=== PATIENT | female | born 1945 | race Caucasian/White ===

== ENCOUNTER 2021-12-07 10:03 | Outpatient (CLI) | payer MEDICARE, BC, SELFPAY ==
[2021-12-07 13:16] LABS: Albumin* 4.1 g/dL (3.3-5.0); Chloride* 103 mmol/L (96-114)
[2021-12-07 13:17] LABS: Potassium* 4.5 mmol/L (3.6-5.1); Sodium* 138 mmol/L (135-149)
[2021-12-07 13:19] LABS: Aspartate Amino Transferase* 28 U/L (12-35); Bilirubin Total* 0.5 mg/dL (0.1-1.5); Blood Urea Nitrogen* 13 mg/dL (7-30); Carbon Dioxide* 32 mmol/L (20-32); Cholesterol* 220 mg/dL (90-199); Creatinine* 0.7 mg/dL (0.5-1.5); Glucose* 94 mg/dL (60-115); Total Protein* 6.3 g/dL (6.0-8.3)
[2021-12-07 13:20] LABS: Alanine Aminotransferase* 20 U/L (4-35); Alkaline Phosphatase* 59 U/L (40-150); Calcium* 9.4 mg/dL (8.4-10.6); HDL Cholesterol* 85 mg/dL (>=50); LDL Cholesterol Calculated 117 mg/dL (<100); Triglycerides* 91 mg/dL (40-149)
[2021-12-07 13:59] LABS: TSH With Reflex to FT4* < 0.015 uIU/mL (0.270-4.200)
[2021-12-07 14:32] LABS: Free T4 Free Thyroxine* 2.06 ng/dL (0.70-1.85)
== END 2021-12-07 10:04 | disposition home or self-care (01) ==
PROVIDERS: PCP Internal Medicine; Visit Provider Internal Medicine
DX: Z00.00 Encounter for general adult medical examination without abnormal findings (principal); E03.9 Hypothyroidism, unspecified; G25.0 Essential tremor; M81.0 Age-related osteoporosis without current pathological fracture
CPT/HCPCS: 80053; 80061; 84439; 84443

== ENCOUNTER 2021-12-29 17:51 | Emergency (ER) | payer MEDICARE, BC, SELFPAY ==
[2021-12-29 17:56] VITALS: BP 152/74; PULSE 76; RESP 18; TEMP 37.3; O2SAT 98; BMI 27.4
--- NOTE | 2021-12-29 18:25 | CRLHL7_ITS ---
For Patients: As a result of the Century Cures Act, medical imaging exams and procedure reports are released immediately into your electronic medical record. You may view this report before your referring provider. If you have questions, please contact your health care provider. Indication: Injury and pain. Technique: Right wrist, 3 views Comparison: None. Findings: Bones: Alignment is normal. No fractures or bone lesions. Joint spaces: Unremarkable. Soft tissues: Unremarkable. Impression: No acute injury in the right wrist. Dictated by Donaldo Bailey MD @ 12/29/2021 7:01:28 PM (Electronically Signed)
--- NOTE | 2021-12-29 18:32 | CRLHL7_ITS ---
For Patients: As a result of the Century Cures Act, medical imaging exams and procedure reports are released immediately into your electronic medical record. You may view this report before your referring provider. If you have questions, please contact your health care provider. INDICATION: Fall. TECHNIQUE: Pelvis and right hip, 3 views. COMPARISON: None. FINDINGS: Bones: Alignment is normal. No fractures or bone lesions. Joint spaces: Mild degenerative changes of both hips. Soft tissues: Unremarkable. IMPRESSION: No acute fracture or dislocation. Dictated by Donaldo Bailey MD @ 12/29/2021 7:00:07 PM (Electronically Signed)
[2021-12-29] MEDS: ACETAMINOPHEN 325 MG TABLET 650 MG PO (18:44)
--- NOTE | 2021-12-29 19:37 | ED_ITS ---
HPI - General Adult General Chief complaint: Extremity Pain/Injury, Upper Stated complaint: Fall w/right wrist and right leg pain Time Seen by Provider: 12/29/21 18:16 History of Present Illness HPI narrative: Radha is a 76-year-old female patient presents emergency department with hi story of essential tremor, thyroiditis, and falls. She presents after having an accidental fall at approximately 3:30 p.m. where she misstepped over a concrete barrier and fell onto outstretched right hand, right hip, and right shoulder. The patient denies numbness, tingling, weakness. Patient reports decreased range of motion in her right wrist and right hip. The patient states that she just did not hit her head, had no loss of consciousness, and she denies other injury. She was able to right herself and ambulate on scene. She denies other acute concerns or complaints apart from as mentioned. Related Data Home Medications Medication Instructions Recorded Confirmed calcium carbonate 600 mg-vitamin cap PO DAILY cap 12/07/21 12/07/21 D3 12.5 mcg (500 unit) capsule (Calcium 600 with Vitamin D3) Previous Rx's Medication Instructions Recorded levothyroxine 125 mcg capsule 125 mcg PO QDAY #90 cap 12/07/21 metronidazole 1 % topical gel 1 applic TOPICAL QDAY #60 g 12/07/21 (Metrogel) Allergies Allergy/AdvReac Type Severity Reaction Status Date / Time Duck eggs Allergy Mild Rash Uncoded 12/29/21 18:03 Ivory soap Allergy Mild Rash Uncoded 12/29/21 18:03 smoke Allergy Mild congestion Uncoded 12/29/21 18:03 Review of Systems Const: Denies: fever, fatigue or malaise Eyes: Denies: change in vision ENMT: Denies: neck pain Cardio: Denies: chest pain or shortness of breath with exertion Resp: Denies: shortness of breath GI: Denies: abdominal pain Musculo: Reports: joint pain, limited range of motion and joint swelling; Denies: neck pain Integ/Breast: Reports: other (bruising noted along right wrist); Denies: redness Neuro: Denies: headache, numbness in extremities or weakness in extremities Endo: Denies: fatigue PFSH PFSH Social History Smoking Status: Never smoker Do you use any of these nicotine containing products: None Second hand tobacco smoke exposure: No How often do you have a drink containing alcohol: monthly or less How often do you have six or more drinks on one occasion: Never AUDIT-C Alcohol total score: 1 Non-prescribed substance use: denies use Little interest or pleasure in doing things: not at all Feeling down, depressed, or hopeless: not at all Exam Const: Vital Signs, click to edit/add: Vital Signs - 24 hr 12/29/21 17:56 12/29/21 19:55 Temperature 99.1 F Pulse Rate [Pulse Oximeter] 76 98 Respiratory Rate 18 Blood Pressure [Le ft Upper Arm] 152/74 H Pulse Oximetry 98 96 Documenting provider has reviewed patient's vital signs: yes Common normals: no apparent distress, oriented x3, no limitations, healthy appearing, alert and well nourished General appearance: cooperative, comfortable, well kempt and well developed; not in distress Orientation/consciousness: Yes awake, Yes oriented to person, Yes oriented to place and Yes oriented to time HENMT: Common normals: normocephalic and head/scalp atraumatic Head and scalp: normocephalic and atraumatic Eye: Common normals: PERRL Pupil: PERRL Neck & C-Spine: Common normals: full ROM, no lymphadenopathy and supple Resp: Common normals: normal respiratory effort, no use of accessory muscles and clear to auscultation bilaterally Effort & inspection: able to speak in complete sentences Auscultation: clear to auscultation bilaterally Cardio: Common normals: regular rate, regular rhythm, S1 normal heart sound, S2 normal heart sound, no gallops and no murmurs Rate: regular rate Rhythm: regular rhythm Heart sounds: S1 normal and S2 normal GI: Common normals: Normal to inspection, nondistended, normoactive bowel sounds present and soft to palpation Palpation: soft Back & Pelvis: Pelvis: no pain with anterior-posterior compression and no pain with lateral compression Extremity: General: normal exam except as noted Right upper extremity: wrist Right wrist: inspection (mild swelling noted with some ecchymosis noted), palpation (tender with moderate palpation over carpal bones), ROM (limited 2/2 pain) and neurovascular exam (sensation intact, motor limited 2/2 pain) Neuro: Raquel Coma Scale: document GCS findings Raquel coma scale eye opening: Spontaneous (4) [place] coma scale verbal response: Orientated (5) [place] coma scale motor response: Obey commands (6) [place] coma scale total score: 15 Common normals: oriented x3 Sensorium/orientation: awake, alert, oriented to person, oriented to place and oriented to time Psych: Appearance: well kempt Course Vital Signs Vital signs: Initial Vital Signs Temperature 99.1 F 12/29/21 17:56 Temperature Source Temporal Artery Scan 12/29/21 17:56 Pulse Rate 76 12/29/21 17:56 Respiratory Rate 18 12/29/21 17:56 Blood Pressure 152/74 H 12/29/21 17:56 Blood Pressure Mean 100 12/29/21 17:56 Blood Pressure Position Sitting 12/29/21 17:56 Pulse Oximetry 98 12/29/21 17:56 Oxygen Delivery Method 12/29/21 17:56 Vital Signs Temperature 99.1 F 12/29/21 17:56 Pulse Rate 76 12/29/21 17:56 Respiratory Rate 18 12/29/21 17:56 Blood Pressure 152/74 H 12/29/21 17:56 Pulse Oximetry 98 12/29/21 17:56 Temperature 99.1 F 12/29/21 17:56 Pulse Rate 98 12/29/21 19:55 Respiratory Rate 18 12/29/21 17:56 Blood Pressure 152/74 H 12/29/21 17:56 Pulse Oximetry 96 12/29/21 19:55 Discharge Plan Discharge Clinical Impression: Acute hip pain, Right wrist pain, Fall Patient Disposition: Home, Self-Care Condition: Stable Instructions: R.I.C.E. Treatment (ED) Additional Instructions: Thank you for choosing [facility] for your care today. Take NSAID of choice - Advil, Aleve, Motrin, or substitute - scheduled per package directions with food for 72hrs. Use RICE - rest, ice, compression, and elevation - as needed for symptom control. I recommend following up with your primary physician in 1-2wks if a significant improvement of symptoms is not noted. Continue routine activity as tolerated. If new or worsening symptoms develop or you have any concerns in the meantime, please call your primary care clinic or return to the ER for re-evaluation. Activity Level: Activity as Tolerated Discharge Diet: Regular Prescriptions: No Action calcium carbonate-vitamin D3 [Calcium 600 with Vitamin D3] 600 mg-12.5 mcg (500 unit) capsule PO DAILY 0RF metronidazole [Metrogel] 1 % gel 1 applic topical QDAY Qty: 60 0RF levothyroxine 125 mcg capsule 125 mcg PO QDAY Qty: 90 3RF Follow Up/Referrals: Shayan Scherer MD [Primary Care Provider] - Stand Alone Forms: ReachLocal Info Instructions
[2021-12-29 19:55] VITALS: PULSE 98; O2SAT 96
--- NOTE | 2021-12-29 19:55 | ED.NURSE ---
TANISHA wrap applied to pt right arm and wrist.
== END 2021-12-29 20:00 | disposition home or self-care (01) ==
PROVIDERS: Emergency Provider Family Medicine; PCP Internal Medicine
DX: M25.551 Pain in right hip (principal); M25.531 Pain in right wrist; W01.0XXA Fall on same level from slipping, tripping and stumbling without subsequent striking against object, initial encounter
CPT/HCPCS: 73110; 73502; 99283; A9270

== ENCOUNTER 2022-02-10 13:03 | Outpatient (CLI) | payer MEDICARE, BC, SELFPAY ==
--- OUTSIDE RECORDS SUMMARY | 2022-02-10 13:06 | XMS_ITS | Encounter Summary ---
:1945 Author Organization [facility] Address [address] [place] [address] Care Team Providers Name Role Phone Shayan Scherer MD Primary Care Provider [phone] Reason for Visit Reason Comments Tremors UMP NE MOVEMENT DISORDER- CO NSULT FO ESSENTIAL TREMORS Encounter Details Date Type Department Care Team Description 04/11/2018 Office Visit [facility] Neurology Mathew Keane Tremor (Primary Dx); [address] [place] [address] MD Adiel Heterochromia of iris of both eyes; [address] [place] [address] [place] [id number] [phone] Social History Tobacco Use Types Packs/Day Years Used Date Never Smoker Smokeless Tobacco: Never Used Alcohol Use Standard Drinks/Week Comments Yes 0 (1 standard drink = 0.6 oz pure alcoho l) social. rare and limited Alcohol Habits Answer Date Recorded How often do you have a drink containing Not asked alcohol? How many drinks containing alcohol do you Not asked have on a typical day when you are drinking? How often do you have six or more drinks on Not asked one occasion? Comment: social. rare and limited 04/11/2018 Sex Assigned at Date Recorded Not on file documented as of this encounter Last Filed Vital Signs Vital Sign Reading Time Taken Comments Blood Pressure 137/66 04/11/2018 11:01 AM CRIMINAL JUSTICE PROFESSOR Pulse 88 04/11/2018 11:01 AM CRIMINAL JUSTICE PROFESSOR Temperature 36.3 ??C (97.4 ??F) 04/11/2018 11:01 AM CRIMINAL JUSTICE PROFESSOR Respiratory Rate 16 04/11/2018 11:01 AM CRIMINAL JUSTICE PROFESSOR Oxygen Saturation 99% 04/11/2018 11:01 AM CRIMINAL JUSTICE PROFESSOR Inhaled Oxygen Concentration - - Weight 69.9 kg (154 lb) 04/11/2018 11:01 AM CRIMINAL JUSTICE PROFESSOR Height 158 cm (5' 2.2) 04/11/2018 11:01 AM CRIMINAL JUSTICE PROFESSOR Body Mass Index 27.99 04/11/2018 11:01 AM CRIMINAL JUSTICE PROFESSOR documented in this encounter Patient Instructions Patient InstructionsTMathew phillips MD - 04/11/2018 11:10 AM CST ESSENTIAL TREMOR Essential Tremor - no features of parkinson This is not a dystonic tremor at this point. Would not recommend medications at this time. She is not keen on taking medications at this time. Discussed propranolol, primidone (mysoline), topiramate (Topamax) as possible medications but not needed and they have side effects Discussed research by Dr. Armaan Castellano at [facility], etc. Most likely the head tremor - no no tremor will increase over time HETEROCHROMIA IRISES PROSOPAGNOSIA ? THYROID DISORDER - ON MEDICATIONS. NO TESTS OR MEDICATIONS AT THIS TIME. INAL JUSTICE PROFESSOR documented in this encounter Progress Notes Mathew Keane MD - 04/11/2018 11:10 AM CST Summary and Recommendations: ESSENTIAL TREMOR Essential Tremor - no features of parkinson This is not a dystonic tremor at this point. Would not recommend medications at this time. She is not keen on taking medications at this time. Discussed propranolol, primidone (mysoline), topiramate (Topamax) as possible medications but not needed and they have side effects Discussed research by Dr. Armaan Castellano at [facility], etc. Most likely the head tremor - no no tremor will increase over time HETEROCHROMIA IRISES PROSOPAGNOSIA ? THYROID DISORDER - ON MEDICATIONS. NO TESTS OR MEDICATIONS AT THIS TIME. Mathew Keane MD PATIENT: Radha Byrne 72 year old female : 1945 LORENA: April 11, 2018 Consult requested by pcp/other Outside records reviewed and revealed - inserted History obtained from patient History of Present Illness 72 yo woman with tremor Ros She has early cataract Heterochromia - iris are different. Has ocular dominance with one seeing close and one seeing far Hearing is okay Sleep - had sleep study - she snores She does not have obstruction if she sleeps on her side. This is fine. She has never and no kids She wakes up 1-2 times per night and urinates Sleeps 5-7 hours of sleep - sometimes sleeps 8 hours No loss of smell/taste No gi problems No bladder issues Had trimming of her left Knee Had wiggling of her face. 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 She is living by herself and Nadja lives 20 miles away in [place]. Thyroid surgeries x 3 - was in her 20s and was working [employer]mates Was super tired after coming home from work and fatigue prompted her to see doctor and testing was done and thyroid problem discovered. She had something and was operated on this. - there was not a goiter 20 yrs later she had bulging of thyroid - ? Fluid inside and was biopsied and had an operation possibly at that time and medications may have been changed 3rd operation was the big surgery and remainder of her thyroid was removed Cholesterol has been way above average Eats plant based diet and uses olive oil Using [facility] for medical records. She denies diabetes. She is here today because her head is rotating back and forth and can feel it sometimes. She can see it in a mirror. She is unaware of it at times She is bothered by this. It does not affect her vision. of last month she noticed the symptoms and reviewed this with Dominique Marion of [facility]. She had blood work. No abnormal growth of her thyroid. She had a mri of her thyroid and not her brain. Her thyroid was okay She was referred to me. She has no family history of tremor She has had some internal tremor. She has felt shaky and has problems walking and had to grab on things. She felt that she is going towalk crooked Duration - of symptoms Morning and after lunch went to bed and this probably resolved. she has noticed a bit of shaking in her hands and is somewhat wiggling She is right handed. She uses her left a lot as well. Not sure if there is a difference between the two hands She had a mon (alcohol) a week ago and not clear it helped. Coffee does not seem to increase it. She drinks a cup or two at breakfast and cup at lunch. Rarely has a fourth cup. She may have just one cup in the morning. She is busy - Board in a variety of roles. 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 She does not drink soda and if she does it is rootbeer and does not drink coca cola. She does not drink lemonade. Has some problems with nouns - memory/cognitive changes with aging She always had problems with facial recognition since she was a child. Medications Calcium vitamin D Cholecalciferol vitamin D3 Levothyroxine synthroid/levothyroid 137 mcg 14 Review of systems are negative except for Patient Active Problem List Diagnosis ??? Fall ??? Hypothyroidism ??? Osteoporosis ??? History of surgical removal of ganglion cyst Allergies not on file No past surgical history on file. No past medical history on file. Social History Social History ??? Marital status: Single Spouse name: N/A ??? Number of children: N/A ??? Years of education: N/A Occupational History ??? Not on file. Social History Main Topics ??? Smoking status: Not on file ??? Smokeless tobacco: Not on file ??? Alcohol use Not on file ??? Drug use: Not on file ??? Sexual activity: Not on file Other Topics Concern ??? Not on file Social History Narrative single. lives in [place]. Nadja Nino sister No family history on file. Current Outpatient Prescriptions Medication Sig Dispense Refill ??? cholecalciferol (VITAMIN D3) 400 UNIT TABS tablet Daily ??? levothyroxine (SYNTHROID/LEVOTHROID) 137 MCG tablet Daily ??? Calcium-Vitamin D (CALTRATE 600 PLUS-VIT D OR) Daily Examination B/P: Data Unavailable, T: Data Unavailable, P: Data Unavailable, R: Data Unavailable 0 lbs 0 oz There were no vitals taken for this visit., There is no height or weight on file to calculate BMI. Vitals signs were added and reviewed if not above. Please refer to the chart from this visit. General examination: well developed, nourished and normal affect Carotid: No bruits. Chest CTA, Heart regular without gallops or murmurs. Abdomen soft nontender, no masses, bowel sounds intact. Periphery: normal pulses without edema. No skin lesions. MENTAL STATUS: Alert, oriented x3. Speech fluent with normal naming, repetition, comprehension. Good right-left orientation, Can remember 2/3 objects. 5/5 on spelling world backwards. CRANIAL NERVES: Disks flat. Pupils are equal, round, reactive to light. HETEROCHROMIA NOTED OF IRISES Normal vascularity and matias. Extraocular movements full. Facial sensation and movement normal. Hearing intact. Palate moves symmetrically. Tongue midline. Sternocleidomastoid and trapezius strength intact. Neck strength was normal. N EUROLOGIC: Tone: normal. Motor in upper and lower extremities. 5/5. Reflexes 2/4. Toe signs downgoing. Good [id number]-tasw-geomjp, fine finger movement, heel- del toro maneuver, sensation to light touch, position sense and vibration and temperature was normal. Gait normal. Romberg and postural stability normal Tremor - no no tremor of her head. She has mild postural and terminal tremor. No resting tremor. n o rigidity. No dystonia. No bradykinesia. Answers for HPI/ROS submitted by the patient on 04/10/2018 General Symptoms: Yes Skin Symptoms: No HENT Symptoms: Yes EYE SYMPTOMS: No HEART SYMPTOMS: No LUNG SYMPTOMS: No INTESTINAL SYMPTOMS: No URINARY SYMPTOMS: Yes GYNECOLOGIC SYMPTOMS: No BREAST SYMPTOMS: No SKELETAL SYMPTOMS: No BLOOD SYMPTOMS: No NERVOUS SYSTEM SYMPTOMS: Yes MENTAL HEALTH SYMPTOMS: No Fever: No Loss of appetite: No Weight loss: No Weight gain: No Fatigue: No Night sweats: No Chills: No Increased stress: No Excessive hunger: No Excessive thirst: No Feeling hot or cold when others believe the temperature is normal: No Loss of height: No Post-operative complications: No Surgical site pain: No Hallucinations: No Change in or Loss of Energy: No Hyperactivity: No Confusion: No Ear pain: No Ear discharge: No Hearing loss: No Tinnitus: No Nosebleeds: No Congestion: No Sinus pain: No Trouble swallowing: No Voice hoarseness: No Mouth sores: No Sore throat: No Tooth pain: No Gum tenderness: No Bleeding gums: No Change in taste: No Change in sense of smell: No Dry mouth: No Hearing aid used: No Neck lump: No Trouble holding urine or incontinence: No Pain or burning: No Trouble starting or stopping: No Increased frequency of urination: No Blood in urine: No Decreased frequency of urination: No Frequent nighttime urination: No Flank pain: No Difficulty emptying bladder: No Trouble with coordination: No Dizziness or trouble with balance: No Fainting or black-out spells: No Memory loss: No Headache: No Seizures: No Speech problems: No Tingling: No Tremor: Yes Weakness: No Difficulty walking: No Paralysis: No Numbness: No INAL JUSTICE PROFESSOR documented in this encounter Nursing Notes Donaldo Wu LPN - 04/11/2018 11:10 AM CST Chief Complaint Patient presents with ??? Tremors UMP NE MOVEMENT DISORDER- CONSULT FO ESSENTIAL TREMORS GIOVANNA Garg INAL JUSTICE PROFESSOR documented in this encounter Plan of Treatment Not on filedocumented as of this encounter Visit Diagnoses Diagnosis Tremor - Primary Abnormal involuntary movements Heterochromia of iris of both eyes Rosacea documented in this encounter Care Teams Beauty Artist Relationship Specialty Start Date End Date Shayan Scherer, PCP - General Emergency Medicine 04/05/18 [facility] [address] [place] [address] Dominique Nelson Referring Physician Clinic 04/05/18 documented as of this encounter
--- OUTSIDE RECORDS SUMMARY | 2022-02-10 13:06 | XMS_ITS | Clinical Summary ---
:1945 Author Organization [facility] Address [address] [place] [address] Care Team Providers Name Role Phone Shayan Scherer MD Primary Care Provider [phone] Allergies Active Allergy Reactions Severity Noted Date Comments Smoke. 04/11/2018 Soap 04/11/2018 Ivory skin Wool Fiber 04/11/2018 Medications Medication Sig Dispensed Refills Start Date End Date Status Calcium-Vitamin D (CALTRATE 600 Daily 0 Active PLUS-VIT D OR) cholecalciferol (VITAMIN D3) 400 Daily 0 018 Active UNIT TABS tablet levothyroxine Daily 0 09/17/2017 Activ e (SYNTHROID/LEVOTHROID) 137 MCG tablet Active Problems Problem Noted Date Heterochromia of iris of both eyes 04/11/2018 Overview: Right eye is brown and left is blue Rosacea 04/11/2018 Fall 04/08/2018 Hypothyroidism 04/08/2018 Osteoporosis 04/08/2018 History of surgical removal of ganglion cyst 8 Family History Medical History Relation Comments Arrhythmia Brother Heart Disease Brother bypass surgery Heart Disease Father 5 vessel bypass Glaucoma Mother Hypertension Mother Neurologic Disorder Mother polio Arthritis Sister 2 knee surgery Breast Cancer Sister 3 bilateral mastectomy Relation Status Comments Brother Alive Father (Age 67) Maternal Grandfather Maternal Grandmother Mother (Age 93) Paternal Grandmother Sister 1 Alive Sister 2 Alive Sister 3 Alive Social History Tobacco Use Types Packs/Day Years [...] Assigned at Date Recorded Not on file Last Filed Vital Signs Vital Sign Reading Time Taken Comments Blood Pressure 137/66 04/11/2018 11:01 AM FRYER LINE HELPER Pulse 88 04/11/2018 11:01 AM FRYER LINE HELPER Temperature 36.3 ??C (97.4 ??F) 04/11/2018 11:01 AM FRYER LINE HELPER Respiratory Rate 16 04/11/2018 11:01 AM FRYER LINE HELPER Oxygen Saturation 99% 04/11/2018 11:01 AM FRYER LINE HELPER Inhaled Oxygen Concentration - - Weight 69.9 kg (154 lb) 04/11/2018 11:01 AM FRYER LINE HELPER Height 158 cm (5' 2.2) 04/11/2018 11:01 AM FRYER LINE HELPER Body Mass Index 27.99 04/11/2018 11:01 AM FRYER LINE HELPER Plan of Treatment Health Maintenance Due Date Last Done Comments ADVANCE CARE PLANNING 1945 ANNUAL REVIEW OF HM ORDERS 1945 CT COLONOGRAPHY 1945 DEXA 1945 FIT-DNA (Cologuard) 1945 FIT 1945 FLEX SIG 1945 COVID-19 Vaccine (#1) 1945 COLONOSCOPY 1957 COLORECTAL CANCER SCREENING 1957 HEPATITIS C SCREENING 1965 DTAP/TDAP/TD IMMUNIZATION 1972 (1 - Tdap) LIPID 1992 MEDICARE ANNUAL WELLNESS 2012 VISIT ZOSTER IMMUNIZATION (2 of 02/02/2014 12/08/2013 3) FALL RISK ASSESSMENT 04/11/2019 04/11/2018 MAMMO SCREENING 04/11/2019 04/11/2017 PHQ-2 (once per calendar 06/04/2021 04/11/2018 year) INFLUENZA VACCINE (#1) 2022 03/05/2018, 03/05/2018, 2017, Additional history exists Pneumococcal Vaccine: 65+ Completed 2017, 03/18/2015 , Years 02/24/2015, Additional history exists HEPATITIS B IMMUNIZATION Aged Out No long er eligible based on patient 's age to complete this topic IPV IMMUNIZATION Aged Out No longer eligi ble based on patient 's age to complete this topic MENINGITIS IMMUNIZATION Aged Out No longe r eligible based on patient 's age to complete this topic Insurance Payer Benefit Plan / Subscriber ID Effective Phone Address T ype Group Dates MEDICARE MEDICARE FOR HB [id number] 2017-Prese [phone] ATTN CLAIMS Medicare SUPPLEMENT nt 40 [address] [place] [address] BCBS BCBS [place] [id number] 2017-Prese [phone] [address] [address] PPO BLUE nt [address] [place] [address] Care Teams Senior Project Manager Relationship Specialty Start Date End Date Shayan Scherer, PCP - General Emergency Medicine 04/05/18 [facility] [address] [place] [address] Dominique Nelson Referring Physician Clinic 04/05/18
--- OUTSIDE RECORDS SUMMARY | 2022-02-10 13:07 | XMS_ITS | Encounter Summary ---
:1945 Author Organization Central Address [address] [place] [address] Care Team Providers Name Role Phone Shayan Scherer MD Primary Care Provider [phone] Encounter Details Date Type Department Care Team Description 04/23/2015 [facility] [place] [facility] Social History Tobacco Use Types Packs/Day Years Used Date Never Assessed Sex Assigned at Date Recorded Not on file documented as of this encounter Plan of Treatment Not on filedocumented as of this encounter Procedures Procedure Name Priority Date/Time Associated Diagnosis Comme nts LAB RESULT - [facility] 04/23/2015 9:08 AM SCAN ALUMINUM CONTAINER TESTER SURGICAL PATHOLOGY Routine 04/21/2015 12:35 PM Re sults for this EXAM ALUMINUM CONTAINER TESTER procedure are i n the results section. documented in this encounter Results LAB RESULT - HIM SCAN (04/23/2015 9:08 AM ALUMINUM CONTAINER TESTER) Specimen (Source) Anatomical Location Collection Method / Collectio n Time Received Time / Laterality Volume Narrative This result has an attachment that is no t available. Historical Provider NON-BEAKER LAB TESTING Surgical Pathology Exam (04/21/2015 12:35 PM ALUMINUM CONTAINER TESTER) [facility] Method Time Signature Case Report HML Surgical Pathology ?Case: [id number] ? 04/23/2015 HEALTH 9:08 AM [facility] Authorizing Provider: ??Cayden Goddard MD ? Ordering Provider: ? ALUMINUM CONTAINER TESTER VIC REYES'Richar Pathologist: ? Sarbjit Curry MD ? Collected: ? 04/21/2015 1235 ? L ABORATORY ?Received: ?04/21/2015 1323 ? Specimen: ?Tendon/Tendon Sheath, LEFT TENDON SHEATH WITH INTRA TENDON GANGLION CYST ? Final LEFT TENDON SHEATH WITH INTRATENDON GANGLION CYST, BIOPSY 04/23/2015 [facility] Diagnosis - DENSE FIBROCONNECTIVE SOFT TISSUE WITH VARIABLE CHRONIC 9:08 AM [facility] ?? INFLAMMATION AND MYXOID CHANGE ALUMINUM CONTAINER TESTER [facility] 15 at ??9:08 AM LABORATORY Clinical Clinical history: ?Pain 2014 [facility] Information Reason for procedure: ?Pain 9:08 A [facility]. Time placed in formalin: 1235 ALUMINUM CONTAINER TESTER [facility] Gross Received in formalin, labele d with the patient's name and left tendon sheath with intratendon ganglion cyst, is an irregular 1.2 x 0.8 x 0.4 cm, yellow-white to pink variegated mass of soft tissue. A 04/23/2015 [facility] Description definitive cystic structure is indeterminate grossly. SS&TE-1C RJR:skylerc 9:08 AM [facility] CPT: ?00457 LABORATORY ICD-10: M67.40 Result Flag Normal 04/23/2015 [facility] 9:08 AM [facility] LABORATORY Comment: SPECIMEN PROCESSING: All histology slide preparation, stains and image analysis done ? at [facility] are performed at [facility], [address] [place] [address] ? [address] [place] [address], [address], with f inal interpretation and ? frozen section analysis at the indicated laboratory. Specimen Anatomical Collection Method Collection Time Receive d Time (Source) Location / / Volume Laterality Tissue specimen TENDON AND/OR 04/21/2015 12:35 015 1:23 (specimen) TENDON SHEATH PM ALUMINUM CONTAINER TESTER PM ALUMINUM CONTAINER TESTER STRUCTURE / Unknown Waqar RUBI - TAIWO Performing Organization Address City/State/ZIP Code Phon e [place] [address] [address] [facility] documented in this encounter Visit Diagnoses Not on filedocumented in this encounter Care Teams Physical Plant Employee Relationship Specialty Start Date End Date Shayan Scherer, PCP - General Emergency Medicine 04/05/18 [facility] [address] [place] [address] Dominique Nelson Referring Physician Clinic 04/05/18 documented as of this encounter
--- OUTSIDE RECORDS SUMMARY | 2022-02-10 13:07 | XMS_ITS | Encounter Summary ---
:1945 Author Organization [place] Address [address] [place] [address]. [place] [address] Care Team Providers Name Role Phone Shayan Scherer MD Primary Care Provider [phone] Encounter Details Date Type Department Care Team Description 04/04/2018 Medical Correspondence [facility] Scan, CLINIC REFERRAL Health Info [facility] Non-Provider [facility] [address] [place] [id number] Social History Tobacco Use Types Packs/Day Years Used Date Never Assessed Sex Assigned at Date Recorded Not on file documented as of this encounter Plan of Treatment Not on filedocumented as of this encounter Visit Diagnoses Not on filedocumented in this encounter Care Teams Planting Material Unloader Relationship Specialty Start Date End Date Shayan Scherer, PCP - General Emergency Medicine 04/05/18 [facility] [address] [place] [address] Dominique Nelson Referring Physician Clinic 04/05/18 documented as of this encounter
--- OUTSIDE RECORDS SUMMARY | 2022-02-10 13:07 | XMS_ITS | Encounter Summary ---
:1945 Author Organization [place] Address [address] [place] [address] Care Team Providers Name Role Phone Shayan Scherer MD Primary Care Provider [phone] Reason for Visit Reason Onset Date Comments Previsit 04/08/2018 Tremors Encounter Details Date Type Department Care Team Description 04/08/2018 PRE VISIT [facility] Neurology Mathew Keane, Previsit (Tremors) 909 [facility] [address]rd [address] [place] [id number] [phone] (Wo rk) Social History Tobacco Use Types Packs/Day Years Used Date Never Assessed Sex Assigned at Date Recorded Not on file documented as of this encounter Miscellaneous Notes Telephone Encounter - Kiersten Peck - 04/08/2018 8:43 AM CST FUTURE VISIT INFORMATION FUTURE VISIT INFORMATION: ?? Date: 04/11/18 ?? Time: ?? Location: [facility] REFERRAL INFORMATION: ?? Referring provider: Dr. Grace Nelson ?? Referring providers clinic: [facility] ?? Reason for visit/diagnosis Consult for Essential Tremors RECORDS REQUESTED FROM: Clinic name Comments Records Status Imaging Status [facility] Referral, OV, US report Received Requested 04/08/18: Records received, requested US image be sent over [facility] documented in this encounter Plan of Treatment Not on filedocumented as of this encounter Visit Diagnoses Not on filedocumented in this encounter Care Teams Cad Specialist Relationship Specialty Start Date End Date Shayan Scherer, PCP - General Emergency Medicine 04/05/18 [facility] [address] [place] [address] Dominique Nelson Referring Physician Clinic 04/05/18 documented as of this encounter
--- NOTE | 2022-02-10 13:23 | CRLHL7_ITS ---
For Patients: As a result of the Century Cures Act, medical imaging exams and procedure reports are released immediately into your electronic medical record. You may view this report before your referring provider. If you have questions, please contact your health care provider. BILATERAL SCREENING MAMMOGRAM WITH COMPUTER-AIDED DETECTION AND TOMOSYNTHESIS TECHNIQUE: CC and MLO views were obtained. These mammographic images have been obtained using full-field digital technique. These mammographic images were interpreted with the benefit of computer-aided detection. Breast Tomosynthesis was used in this interpretation. COMPARISON FILM: 06/28/17, 07/14/15, 08/28/13. FINDINGS: The breasts are heterogeneously dense, which may obscure small masses IMPRESSION: There is no radiographic evidence for malignancy. ASSESSMENT: BI-RADS Category 1: Negative RECOMMENDATION: Routine screening mammogram in 1 year. A lay language report of this examination will be provided to the patient. Waqar Miller M.D. Diagnostic Radiologist [email or web address] MATTHEW/Dictated by: Waqar Miller MD @ 02/13/2022 8:38:00 AM (Electronically Signed)
== END 2022-02-10 13:04 | disposition home or self-care (01) ==
LOC: MAMMO 13:05
PROVIDERS: PCP Internal Medicine; Visit Provider Internal Medicine
DX: Z12.31 Encounter for screening mammogram for malignant neoplasm of breast (principal); R92.2 Inconclusive mammogram
CPT/HCPCS: 77063; 77067

== ENCOUNTER 2023-03-21 14:50 | Outpatient (CLI) | payer MEDICARE, BC, SELFPAY ==
--- NOTE | 2023-03-21 15:00 | CRLHL7_ITS ---
For Patients: As a result of the Century Cures Act, medical imaging exams and procedure reports are released immediately into your electronic medical record. You may view this report before your referring provider. If you have questions, please contact your health care provider. DXA BONE MINERAL DENSITY STUDY Reason for exam: Age-related osteoporosis without current pathology. Current height (in): 62. Weight (lb): 150. Menopause age: 54. Ethnicity: White. 1. Have you had a previous hip or vertebral fracture? No. 2. Have you had any fractures during your adult life which did not result from significant trauma (e.g., auto accident)? No. 3. Did either of your parents have a hip fracture? No. 4. Do you smoke? No. 5. Have you ever taken Glucocorticoids? No. 6. Do you have rheumatoid arthritis? No. 7. Do you have secondary osteoporosis? No. 8. Do you drink 3 or more alcoholic drinks per day? No. 9. Are you being treated for osteoporosis? Yes. 10. Have you ever taken any of the following medications: Actonel, Evista, Fosamax, Miacalcin, Reclast, Boniva, Forteo, HRT (i.e., estrogen/hormone therapy), Protelos, Prolia, Vitamin D, Calcium, other ??? please specify. ANSWER: Yes, Fosamax, vitamin D, calcium, and levothyroxine 11. Do you have any of the following medical conditions: Anorexia or bulimia, asthma or emphysema, end stage renal disease, hyperparathyroidism, any seizure disorders, cancer, inflammatory bowel diseases, hysterectomy, other ??? please specify. ANSWER: No. 12. What was your maximum height (inches)? 62.5. 13. Do you perform weight bearing exercise regularly? No. 14. Do you regularly consume dairy products? Yes. 15. Do you drink caffeinated beverages? Yes. If female: 16. At what age did your period start? 15. 17. Are you premenopausal? No. 18. How many full-term pregnancies have you had? 0. 19. Have you ever missed your period for more than 6 months in a row (not including or menopause)? No. TECHNIQUE: Bone mineral density study was performed using the Medigus. FINDINGS: The results of the study expressed as bone mineral density (BMD) are as follows: Lumbar spine L1 to L4: BMD: 0.737 g/cm2. T-score: -2.8. Z-score: -0.4 Neck Left: BMD: 0.625 g/cm2. T-score: -2.0. Z-score: 0.1 Right: BMD: 0.649 g/cm2. T-score: -1.8. Z-score: 0.3 Total Left: BMD: 0.812 g/cm2. T-score: -1.1. Z-score: 0.8 Right: BMD: 0.839 g/cm2. T-score: -0.8. Z-score: 1.0 IMPRESSION: Osteoporosis. *Comparison exams done prior to 11/2019 were performed on different unit, [facility]. COMPARISON: Compared with scan of 10/06/2021, the bone mineral density has decreased by 0.3 percent at the spine and increased by 0.3 percent at the hip. Compared with scan of 04/05/2019, the bone mineral density has decreased by 6.4 percent at the spine and increased by 0.7 percent at the hip. Waqar Miller M.D. Diagnostic Radiologist [email or web address] GLENNA/robe nagel/Dictated by: Waqar Miller MD @ 03/26/2023 8:49:00 AM (Electronically Signed)
== END 2023-03-21 14:51 | disposition home or self-care (01) ==
LOC: RAD 14:51
PROVIDERS: PCP Internal Medicine; Visit Provider Internal Medicine
DX: M81.0 Age-related osteoporosis without current pathological fracture (principal)
CPT/HCPCS: 77080

== ENCOUNTER 2023-03-26 08:10 | Outpatient (CLI) | payer MEDICARE, BC, SELFPAY | END 2023-03-26 08:11 | disposition home or self-care (01) | LOC: NFLDREF 03-29 10:12 | PROVIDERS: PCP Internal Medicine; Referring Provider Internal Medicine; Visit Provider Internal Medicine | DX: E03.9 Hypothyroidism, unspecified (principal); Z13.220 Encounter for screening for lipoid disorders | CPT/HCPCS: 80053; 80061; 84439; 84443 ==

== ENCOUNTER 2024-04-01 17:41 | Emergency (ER) | payer MEDICARE, BC, SELFPAY ==
[2024-04-01] VITALS (17 sets, daily range): BP systolic 113–169; BP diastolic 67–108; PULSE 72–96; RESP 18; TEMP 37; O2SAT 95–100; BMI 27.6
--- NOTE | 2024-04-01 18:09 | ED_ITS ---
HPI - Syncope General Date Seen: 04/01/24 Chief Complaint: Syncope/Fainted Stated Complaint: Syncope, LOC, hit head, nose bleed Time Seen by Provider: 04/01/24 17:54 Source: patient Mode of arrival: ambulatory Limitations: no limitations History of Present Illness HPI narrative: Patient is a 78-year-old female presenting to emergency department for an episode of syncope. She said around 10:30 today she is feeling very woozy will she was by her kitchen table. She was concerned that she may have the flu or something so she went to her bathroom to sit down K she gets diarrhea. She was then stood back up and states that point she got very lightheaded and fell. She hit the left side of her face against the ground. At she hit the ground she is not sure if she passed out or not. States right after though she was feeling better and was able to get up and has had no symptoms since then. Her main concern since then has been a nose bleed that initially was coming from both nostrils then eventually just the left nostril and has now stopped. Bleeding was going on till about 16:30. She spoke to family who recommended she come to the emergency department to be evaluated. It only medication she currently takes is levothyroxine for hypothyroidism otherwise no other medical issues. States she has been able to eat and drink all day without issue. Has not had any further episodes of the wooziness. Does have some right-sided lateral neck pain radiating down into her trapezius muscle. No other injuries noted. Denies dizziness, weakness, numbness, headache, vision changes, abdominal pain, chest pain, shortness of breath. No other concerns noted at this time Related Data Home Medications ?Medication ?Instructions ?Recorded ?Confirmed calcium 600 mg (as cap PO DAILY 12/07/21 02/14/23 carbonate)-vitamin D3 12.5 mcg (500 unit) capsule (Calcium with Vit D3) Previous Rx's ?Medication ?Instructions ?Recorded levothyroxine 112 mcg tablet 112 mcg PO QDAY #90 tabs 04/04/23 Allergies Allergy/AdvReac Type Severity Reaction Status Date / Time wool Allergy Rash Verified 02/14/23 12:43 Duck eggs Allergy Mild Rash Uncoded 02/14/23 12:41 Ivory soap Allergy Mild Rash Uncoded 02/14/23 12:41 smoke Allergy Mild congestion Uncoded 02/14/23 12:41 Review of Systems Status of ROS: Reports: 10 or more systems reviewed and unremarkable except as noted in History and below [facility] Medical History Rosacea ?L71.9 - Rosacea, unspecified (ICD-10) Social History What is your current living situation?: I presently have a place to live Problems where you live: pests, such as bugs, ants, or mice In the past 12 months, utilities in danger of being shut off: no In past 12 months, lack of transportation kept you from medical appts, meetings, work, or getting things needed for daily living: no In the past 12 mos, have been you worried that your food would run out before you had money to buy more?: never true In the past 12 mos, the food you bought just didn't last and you didn't have money to buy more?: never true Smoking Status: Never smoker Do you use any of these nicotine containing products: None Second hand tobacco smoke exposure: No How often do you have a drink containing alcohol: monthly or less How often do you have six or more drinks on one occasion: Never AUDIT-C Alcohol total score: 1 Non-prescribed substance use: denies use How often does anyone, including family, friends and others, physically hurt you : never How often does anyone, including family, friends and others, insult or talk down to you: never How often does anyone, including family, friends and others, threaten you with harm: never How often does anyone, including family, friends and others, scream or curse at you: never Little interest or pleasure in doing things: not at all Feeling down, depressed, or hopeless: not at all Exam Narrative: Exam Narrative: Const: Well-nourished, Well-developed, in no distress Eyes: PERRL, no conjunctival injection, and symmetrical lids HENT: Blood seen and bilateral nares. No active bleeding. No septal hematoma Moist mucous membranes. Neck: Symmetric, trachea midline, No thyromegaly. CVS: RRR, No murmurs or gallops. Peripheral pulses 2+ and equal in all extremities RESP: Unlabored respiratory effort. Clear to auscultation bilaterally. GI: Nontender/Nondistended, No rebound or guarding. MSK:Extremities w/o deformity, Normal Active ROM Skin: Warm, Dry. No rashes or lesions. Neuro: Normal Muscle tone, No focal neurological deficits. Psych: Awake, Alert, & Oriented x3. Appropriate mood and affect. Const: Vital Signs, click to edit/add: Vital Signs - 24 hr 04/01/24 17:52 04/01/24 18:02 04/01/24 18:03 Temperature 98.6 F Pulse Rate 87 89 Pulse Rate [Right Pulse Oximeter] 96 Respiratory Rate 18 Blood Pressure 139/87 Blood Pressure [Ri ght Upper Arm] 162/84 H Pulse Oximetry 95 98 95 Oxygen Delivery Me thod Room Air 04/01/24 18:15 04/01/24 18:33 04/01/24 18:34 Temperature Pulse Rate 87 83 81 Pulse Rate [Right Pulse Oximeter] Respiratory Rate Blood Pressure 113/95 H Blood Pressure [Ri ght Upper Arm] Pulse Oximetry 98 96 98 Oxygen Delivery Me thod 04/01/24 18:45 04/01/24 19:00 04/01/24 19:02 Temperature Pulse Rate 83 86 81 Pulse Rate [Right Pulse Oximeter] Respiratory Rate Blood Pressure 147/108 H Blood Pressure [Ri ght Upper Arm] Pulse Oximetry 96 97 96 Oxygen Delivery Me thod 04/01/24 19:15 04/01/24 19:30 04/01/24 19:32 Temperature Pulse Rate 77 76 Pulse Rate [Right Pulse Oximeter] Respiratory Rate Blood Pressure 164/73 H Blood Pressure [Ri ght Upper Arm] Pulse Oximetry 100 98 Oxygen Delivery Me thod 04/01/24 19:34 04/01/24 19:45 04/01/24 20:00 Temperature Pulse Rate 75 78 76 Pulse Rate [Right Pulse Oximeter] Respiratory Rate Blood Pressure Blood Pressure [Ri ght Upper Arm] Pulse Oximetry 99 97 98 Oxygen Delivery Me thod 04/01/24 20:01 04/01/24 20:15 Temperature Pulse Rate 75 72 Pulse Rate [Right Pulse Oximeter] Respiratory Rate Blood Pressure 169/67 H Blood Pressure [Ri ght Upper Arm] Pulse Oximetry 98 99 Oxygen Delivery Me thod Course Vital Signs Vital signs: Initial Vital Signs Temperature 98.6 F 04/01/24 17:52 Temperature Source Temporal Artery Scan 04/01/24 17:52 Pulse Rate 96 04/01/24 17:52 Respiratory Rate 18 04/01/24 17:52 Blood Pressure 162/84 H 04/01/24 17:52 Blood Pressure Mean 110 H 04/01/24 17:52 Blood Pressure Position Sitting 04/01/24 17:52 Pulse Oximetry 95 04/01/24 17:52 Oxygen Delivery Method Room Air 04/01/24 17:52 Vital Signs Temperature 98.6 F 04/01/24 17:52 Pulse Rate 96 04/01/24 17:52 Respiratory Rate 18 04/01/24 17:52 Blood Pressure 162/84 H 04/01/24 17:52 Pulse Oximetry 95 04/01/24 17:52 Oxygen Delivery Method Room Air 04/01/24 17:52 Temperature 98.6 F 04/01/24 17:52 Pulse Rate 72 04/01/24 20:15 Respiratory Rate 18 04/01/24 17:52 Blood Pressure 169/67 H 04/01/24 20:01 Pulse Oximetry 99 04/01/24 20:15 Oxygen Delivery Method Room Air 04/01/24 17:52 MDM - Syncope MDM Narrative Medical decision making narrative: Patient is a 78-year-old female presenting for what sounds like an episode of syncope. She has been doing well since then. Nosebleed has since stopped and currently see no signs of bleeding. Considering how long she has bleeding for the could be chance of anemia so CBC will be ordered. Will also order BMP to check her blood sugar or possible signs of dehydration electrolyte issues causing her syncopal episode. Will CT scan her head, cervical spine, facial bones considering the fall. Will also do a chest x-ray to look for signs of pneumonia or intrathoracic abnormalities that could have caused this. Seems unlikely to be a dissection or aneurysm a causing the issue. Also unlikely to be ACS considering she has no symptom free but I will order a troponin and EKG. Lab work shows no concerning abnormalities. Troponin an EKG showed no concerning findings. Repeat troponin will be done. Images reviewed by myself the radiologist shows no concerning abnormalities. There is a possible nasal fracture the cannot say the chronicity of it at this time. Either way this is not requiring emergent intervention. Repeat troponin shows no concerning abnormalities. Patient has been asymptomatic since arriving to the emergency de partment. This time I cannot say for certain why she had a syncopal episode while at this point she is safe for discharge. She is agreeable to this plan. Lab Data Labs: Lab Results 04/01/24 04/01/24 Range/Units 18:21 20:15 WBC 9.03 (4.50-11.00) K/uL RBC 4.39 (4.00-5.20) m/uL Hgb 13.9 (12.0-16.0) gm/dL Hct 41.6 (33.0-51.0) % MCV 95 (80-100) fL MCH 32 (26-34) pg MCHC 33 (32-36) gm/dL RDW Coeff of Mayuri 12.5 (11.5-15.5) % Plt Count 254 (140-440) K/uL Neut % (Auto) 85.5 H (42.0-72.0) % Lymph % (Auto) 9.0 L (20-44) % [place] % (Auto) 5.1 (0.0-11.0) % Eos % (Auto) 0.1 (0.0-7.0) % Baso % (Auto) 0.2 (0.0-3.0) % Neut # (Auto) 7.70 H (1.7-7.0) K/uL Lymph # (Auto) 0.80 L (0.90-2.90) K/uL [place] # (Auto) 0.50 (0.00-0.90) K/UL Eos # (Auto) 0.01 (0.00-0.50) K/uL Baso # (Auto) 0.02 (0.00-0.30) K/uL Abs Immat Gran (auto) 0.01 (0.00-0.30) K/uL Imm/Tot Granulo (auto) 0.1 % Sodium 132 L (135-149) mmol/L Potassium 4.2 (3.6-5.1) mmol/L Chloride 99 (96-114) mmol/L Carbon Dioxide 23 (20-32) mmol/L Anion Gap 10 (7-15) mEq/L BUN 21 (7-30) mg/dL Creatinine 0.8 (0.5-1.5) mg/dL Estimated Creat Clear 37.85 Estimated GFR 76 ml/min Glucose 131 H (60-115) mg/dL Calcium 9.3 (8.4-10.6) mg/dL SARS-CoV-2 (PCR) Negative SARS-CoV-2 (Negative) Influenza Type A (PCR) Negative PCR FLU A (Negative) Influenza Type B (PCR) Negative PCR FLU B (Negative) RSV (PCR) Negative PCR RSV (Negative) POC Troponin I 0.00 L 0.01 (0.01-0.04) ng/ml Imaging Data CT scan - head: Radiologist's impression: No acute intracranial process identified. No skull fractures. No intracranial hemorrhage. Please note that all CT scans at this facility use dose modulation, iterative reconstruction, and/or weight-based dosing when appropriate to reduce radiation dose to as low as reasonably achievable. Dictated by Loc Marquis MD @ 04/01/2024 7:10:[address] scan facial bones: Radiologist's impression: Soft tissue swelling of the forehead. Age-indeterminate nasal bone fracture. Otherwise no acute fractures or dislocations identified. Please note that all CT scans at this facility use dose modulation, iterative reconstruction, and/or weight-based dosing when appropriate to reduce radiation dose to as low as reasonably achievable. Dictated by Loc Marquis MD @ 04/01/2024 7:18:[address] scan cervical spine: Radiologist's impression: 1. No sign of acute injury. 2. Multilevel degenerative spondylosis. Please note that all CT scans at this facility use dose modulation, iterative reconstruction, and/or weight-based dosing when appropriate to reduce radiation dose to as low as reasonably achievable. Dictated by Loc Marquis MD @ 04/01/2024 7:21:45 PM ECG Data Attestation: I personally reviewed and interpreted this ECG as follows: Prior ECG tracings: not available for review Interpretation: Normal sinus rhythm with a rate of 97 beats per minute, normal intervals, normal axis, no ST or T-wave abnormalities. Discharge Plan Discharge Clinical Impression: Syncope Qualifiers: Syncope type: unspecified Qualified Code(s): R55 - Syncope and collapse Closed fracture nasal bone Qualifiers: Encounter type: initial encounter Qualified Code(s): S02.2XXA - Fracture of nasal bones, initial encounter for closed fracture Instructions: Syncope (DC) Additional Instructions: Follow-up with your primary care provider about your syncopal episode in your nasal fracture. Return to emergency department for any new or worsening symptoms. Prescriptions: No Action calcium carbonate-vitamin D3 [Calcium 600 with Vitamin D3] 600 mg-12.5 mcg (500 unit) capsule PO DAILY levothyroxine 112 mcg tablet 112 mcg PO QDAY Qty: 90 3RF Follow Up/Referrals: Shayan Scherer MD [Primary Care Provider] - Stand Alone Forms: [employer] Info Instructions
--- NOTE | 2024-04-01 18:13 | CRLHL7_ITS ---
For Patients: As a result of the Cures Act, medical imaging exams and procedure reports are released immediately into your electronic medical record. You may view this report before your referring provider. If you have questions, please contact your health care provider. INDICATION: Fall, hit head. TECHNIQUE: CT maxillofacial without contrast. COMPARISON: None. FINDINGS: Facial bones: Diffuse demineralization of visualized bones. Age-indeterminate nasal bone fracture. Otherwise, no acute fractures or bone lesions. Specifically the temporomandibular joints, maxilla and mandible appear intact. Orbits and globes: Unremarkable. Globes are intact. No sign of intraorbital hemorrhage or emphysema. Sinuses: No acute or significant findings. Soft tissues: Soft tissue swelling within the forehead. IMPRESSION: Soft tissue swelling of the forehead. Age-indeterminate nasal bone fracture. Otherwise no acute fractures or dislocations identified. Please note that all CT scans at this facility use dose modulation, iterative reconstruction, and/or weight-based dosing when appropriate to reduce radiation dose to as low as reasonably achievable. Dictated by Loc Marquis MD @ 04/01/2024 7:18:44 PM (Electronically Signed)
--- NOTE | 2024-04-01 18:13 | CRLHL7_ITS ---
For Patients: As a result of the Century Cures Act, medical imaging exams and procedure reports are released immediately into your electronic medical record. You may view this report before your referring provider. If you have questions, please contact your health care provider. INDICATION: Trauma. TECHNIQUE: CT cervical spine without contrast. COMPARISON: None. FINDINGS: Vertebrae: Diffuse demineralization of the visualized bones. Alignment is normal. There are no fractures or suspicious bony lesions. Discs and facet joints: There are diffuse degenerative changes in the disc spaces and facet joints. Extraspinal findings: Paraspinous soft tissues are unremarkable. IMPRESSION: 1. No sign of acute injury. 2. Multilevel degenerative spondylosis. Please note that all CT scans at this facility use dose modulation, iterative reconstruction, and/or weight-based dosing when appropriate to reduce radiation dose to as low as reasonably achievable. Dictated by Loc Marquis MD @ 04/01/2024 7:21:45 PM (Electronically Signed)
--- NOTE | 2024-04-01 18:13 | CRLHL7_ITS ---
For Patients: As a result of the Century Cures Act, medical imaging exams and procedure reports are released immediately into your electronic medical record. You may view this report before your referring provider. If you have questions, please contact your health care provider. INDICATION: FALL, HIT HEAD. TECHNIQUE: Head CT without contrast. COMPARISON: None. FINDINGS: CSF spaces: Within normal limits for age. Brain parenchyma and extra-axial spaces: There are nonspecific low attenuation white matter changes consistent with chronic microvascular disease. No sign of mass, hemorrhage, or midline shift. Skull base and calvarium: The visualized paranasal sinuses and mastoid air cells demonstrate no acute or significant findings. The visualized orbits are grossly unremarkable. No skull fractures. IMPRESSION: No acute intracranial process identified. No skull fractures. No intracranial hemorrhage. Please note that all CT scans at this facility use dose modulation, iterative reconstruction, and/or weight-based dosing when appropriate to reduce radiation dose to as low as reasonably achievable. Dictated by Loc Marquis MD @ 04/01/2024 7:10:38 PM (Electronically Signed)
[2024-04-01 18:29] LABS: Basophils Absolute Auto 0.02 K/uL (0.00-0.30); Basophils Percent Auto 0.2 % (0.0-3.0); Eosinophils Absolute Auto 0.01 K/uL (0.00-0.50); Eosinophils Percent Auto 0.1 % (0.0-7.0); Hematocrit 41.6 % (33.0-51.0); Hemoglobin* 13.9 gm/dL (12.0-16.0); Immature Granulocytes Abs Auto 0.01 K/uL (0.00-0.30); Immature Granulocytes Pct Auto 0.1 %; Mean Corpuscular HGB Conc 33 gm/dL (32-36); Mean Corpuscular Hemoglobin 32 pg (26-34); Mean Corpuscular Volume 95 fL (80-100); Monocytes Percent Auto 5.1 % (0.0-11.0); Neutrophils Percent Auto 85.5 % (42.0-72.0); Platelet Count* 254 K/uL (140-440); RDW Coefficient of Variation % 12.5 % (11.5-15.5); Red Blood Count 4.39 m/uL (4.00-5.20); White Blood Count* 9.03 K/uL (4.50-11.00)
[2024-04-01 18:41] LABS: Chloride* 99 mmol/L (96-114); Slide Review Reflex No; Sodium* 132 mmol/L (135-149)
[2024-04-01 18:42] LABS: Potassium* 4.2 mmol/L (3.6-5.1)
[2024-04-01 18:44] LABS: Creatinine* 0.8 mg/dL (0.5-1.5); Est. Creatinine Clearance* 37.85; Estimated Glomerular Filt Rate 76 ml/min
[2024-04-01 18:45] LABS: Anion Gap 10 mEq/L (7-15); Blood Urea Nitrogen* 21 mg/dL (7-30); Calcium* 9.3 mg/dL (8.4-10.6); Carbon Dioxide* 23 mmol/L (20-32); Glucose* 131 mg/dL (60-115)
[2024-04-01 19:06] LABS: PCR FLU A Negative PCR FLU A (Negative); PCR FLU B Negative PCR FLU B (Negative); PCR RSV Negative PCR RSV (Negative); SARS PCR* Negative SARS-CoV-2 (Negative)
--- OUTSIDE RECORDS SUMMARY | 2024-04-01 19:36 | XMS_ITS | Clinical Summary ---
Author Organization [place] [facility] Address [address] [place] [address] Care Team Providers Care Business Management Manager Name Role Phone Shayan Scherer MD Primary Care Provider Allergies Active Allergy Reactions Criticality Noted Date Comments Smoke. 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 Overview (04/11/2018): Right eye is brown and left is blue Rosacea 04/11/2018 Fall 04/08/2018 Hypothyroidism 04/08/2018 Osteoporosis 04/08/2018 History of surgical removal of ganglion cyst 10/2017 Family History Medical History Relation Comments Arrhythmia Brother Heart Disease Brother bypass surgery Heart Disease Father 5 vessel bypass Glaucoma Mother Hypertension Mother Neurologic Disorder Mother polio Arthritis Sister 2 knee surgery Breast Cancer Sister 3 bilateral mastec twin Relation Status Comments Brother Alive Father (Age 67) Maternal Grandfather Maternal Grandmother Mother (Age 93) Paternal Grandmother Sister 1 Alive Sister 2 Alive Sister 3 Alive Social History Tobacco Use Types Packs/Day Years Used Date Smoking Tobacco: Never Smokeless Tobacco: Never Alcohol Use Standard Drinks/Week Comments Yes 0 (1 standard drink = 0.6 oz pur e alcohol) social. rare and limited PHQ-2 Answer Date Recorded PHQ-2 Score 0 04/11/2018 Adolescent Education Answer Date Record ed Getting School Help Needed Not on file 02/23 Comments No Sex and Gender Information Value Date Recorded Sex Assigned at Not on file Legal Sex Female 8:21 AM CDT Gender Identity Not on file Sexual Orientation Not on file Last Filed Vital Signs Vital Sign Reading Time Taken Comments Blood Pressure 137/66 04/11/2018 11:01 AM ACCOUNT SERVICES MANAGER Pulse 88 04/11/2018 11:01 AM ACCOUNT SERVICES MANAGER Temperature 36.3 ??C (97.4 ??F) 04/11/2018 11:[address] Respiratory Rate 16 04/11/2018 11:01 AM ACCOUNT SERVICES MANAGER Oxygen Saturation 99% 04/11/2018 11:01 AM ACCOUNT SERVICES MANAGER Inhaled Oxygen Concentration - - Weight 69.9 kg (154 lb) 04/11/2018 11:01 AM ACCOUNT SERVICES MANAGER Height 158 cm (5' 2.2) 04/11/2018 11:01 AM ACCOUNT SERVICES MANAGER Body Mass Index 27.99 04/11/2018 11:01 AM ACCOUNT SERVICES MANAGER Plan of Treatment Not on file Insurance [facility] MEDICARE BCBS [employer] MEDICARE Care Teams Business Management Manager Relationship Specialty Start Date End Date Shayan Scherer MD [facility] [address] [place] [address] PCP - General Emergency Medicine 04/05/18 Dominique Nelson Referring Physician Clinic 04/05/18
--- OUTSIDE RECORDS SUMMARY | 2024-04-01 19:36 | XMS_ITS | Referral Summary ---
Author Organization [facility] Address [address] [place] [address] Care Team Providers Care Escalator Attendant Name Role Phone Shayan Scherer MD Primary [...] of surgical removal of ganglion cyst 10/2017 Social History Tobacco Use Types Packs/Day Years [...] Comments Blood Pressure 137/66 04/11/2018 11:01 AM MOTION GRAPHICS DESIGNER Pulse 88 04/11/2018 11:01 AM MOTION GRAPHICS DESIGNER Temperature 36.3 ??C (97.4 ??F) 04/11/2018 11:[address] Respiratory Rate 16 04/11/2018 11:01 AM MOTION GRAPHICS DESIGNER Oxygen Saturation 99% 04/11/2018 11:01 AM MOTION GRAPHICS DESIGNER Inhaled Oxygen Concentration - - Weight 69.9 kg (154 lb) 04/11/2018 11:01 AM MOTION GRAPHICS DESIGNER Height 158 cm (5' 2.2) 04/11/2018 11:01 AM MOTION GRAPHICS DESIGNER Body Mass Index 27.99 04/11/2018 11:01 AM MOTION GRAPHICS DESIGNER Plan of Treatment Not on file Insurance [facility] Address: [address] [address] [place] [address] MEDICARE [facility] Address: [address] [address] [place] [address] MEDICARE Care Teams Escalator Attendant Relationship Specialty Start Date End Date Shayan Scherer MD [facility] [address] [place] [address] PCP - General Emergency Medicine 04/05/18 Dominique Nelson Referring Physician Clinic 04/05/18
[2024-04-01 20:34] LABS: Troponin, Point-of-Care* 0.01 ng/ml (0.01-0.04)
== END 2024-04-01 20:52 | disposition home or self-care (01) ==
LOC: ED 19:35
PROVIDERS: Emergency Provider Student in an Organized Health Care Education/Training Program; PCP Internal Medicine
DX: R55 Syncope and collapse (principal); S02.2XXA Fracture of nasal bones, initial encounter for closed fracture
CPT/HCPCS: 36415; 70450; 70486; 72125; 80048; 84484; 85025; 87631; 93005; 99283; 99284; 99285

== ENCOUNTER 2024-06-25 13:11 | Outpatient (CLI) | payer MEDICARE, BC, SELFPAY | END 2024-06-25 13:12 | disposition home or self-care (01) | LOC: RAD 13:11 | PROVIDERS: PCP Internal Medicine; Visit Provider Internal Medicine Cardiovascular Disease | DX: I47.10 Supraventricular tachycardia, unspecified (principal) | CPT/HCPCS: 93306 ==

== ENCOUNTER 2025-02-02 16:52 | Emergency (ER) | payer MEDICARE, BC, SELFPAY ==
--- OUTSIDE RECORDS SUMMARY | 2025-02-02 16:53 | XMS_ITS | CCD ---
Author Name Interface, [id number] lity Address [address] [place] [address] [address] [place] [address] Organization [facility] Address [address] [facility] [address] [place] [address] Care Team Providers Care Vocational Technical Education Director Name Role Phone Rosalie MALDONADO, Sigrid Floresi lable Allergies and Adverse Reactions Medication/Group Name Reaction Severity Date No known allergies Reason for Visit Medications Date Name Route Dose Frequency Instructions Start Date End Date Status Miscellaneous Drug PO 1.0 TABLET(S), CHEWABLE daily active Levothyroxine Oral PO 1.0 TABLET(S) daily active Cholecalciferol Oral PO 1.0 TABLET(S) daily 018 active Problems Diagnosis Status Date of Diagnosis Resolution Date Lipodystrophy (disorder) Active Body mass index (BMI) 27.0-27.9, adult Inactive Social History Date Name Value Sex Female
--- OUTSIDE RECORDS SUMMARY | 2025-02-02 16:53 | XMS_ITS | Clinical Summary ---
Author Organization [facility] Address [address] [place] [address] Care Team Providers Care Photocomposing Keyboard Operator Name Role Phone Shayan Scherer MD Primary Care Provider Allergies No known active allergies Medications metoprolol succinate (Toprol XL) 25 mg Sustained-Releas e tabletIndication s:Supraventricul ar tachycardia (HC) Take 1 Tablet (25 mg) by mouth once daily. 90 Tablet 4 05/22/2024 Active Social History Tobacco Use Types Packs/Day Years Used Date Smoking Tobacco: Never Assessed Comments Unknown Sex and Gender Information Value Date Recorded Sex Assigned at Not on file Legal Sex Female 9:00 AM GRINDER OPERATOR TOOL Gender Identity Not on file Sexual Orientation Not on file Plan of Treatment Health Maintenance Due Date Last Done Comments Tetanus booster 1958 Depression screening for age 12+ 1959 BMI (ht and wt on same day) for age 18+ 1965 Hepatitis C screening for age 18-79 1965 Pneumococcal series for age 50+ (1 of 2 - PCV) 1966 Zoster (shingles) series for age 50+ (1 of 2) 1997 DEXA/DXA scan for age 65+ 2012 Medicare Wellness for age 65+ 2012 RSV vaccine for adults or (1 - 1-dose 75+ series) 2022 COVID-19 vaccine series ( season) 2024 02/26/2024, 04/03/2023, 03/06/2022, Additional history exists Influenza Vaccine (#1) 2025 Hepatitis B series for 19+ Aged Out N o longer eligible based on patient's age to complete this topic Insurance MEDICARE PART A HB ONLY MEDICARE PART B HB ONLY [employer] [place] [place] [facility] [place] ONLY Care Teams Photocomposing Keyboard Operator Relationship Specialty Start Date End Date Shayan Scherer MD [address] [place] [address] PCP - General Internal Medicine 06/25/24
--- OUTSIDE RECORDS SUMMARY | 2025-02-02 16:54 | XMS_ITS | Clinical Summary ---
Author Organization [place] Address [address] [place] [address] Care Team Providers Care Spool Salvager Name Role Phone Shayan Scherer MD Primary [...] Comments Blood Pressure 137/66 04/11/2018 11:01 AM MONOGRAM TECHNICIAN Pulse 88 04/11/2018 11:01 AM MONOGRAM TECHNICIAN Temperature 36.3 C (97.4 F) 04/11/2018 11:01 AM MONOGRAM TECHNICIAN Respiratory Rate 16 04/11/2018 11:01 AM MONOGRAM TECHNICIAN Oxygen Saturation 99% 04/11/2018 11:01 AM MONOGRAM TECHNICIAN Inhaled Oxygen Concentration - - Weight 69.9 kg (154 lb) 04/11/2018 11:01 AM MONOGRAM TECHNICIAN Height 158 cm (5' 2.2) 04/11/2018 11:01 AM MONOGRAM TECHNICIAN Body Mass Index 27.99 04/11/2018 11:01 AM MONOGRAM TECHNICIAN Plan of Treatment Not on file Insurance [facility] MEDICARE BCBS [place] MEDICARE Care Teams Spool Salvager Relationship Specialty Start Date End Date Shayan Scherer MD [facility] [address] [place] [address] PCP - General Emergency Medicine 04/05/18 Dominique Nelson Referring Physician Clinic 04/05/18
[2025-02-02 16:59] VITALS: BP 149/74; PULSE 71; RESP 16; TEMP 36; O2SAT 98; BMI 29.3
--- NOTE | 2025-02-02 18:19 | ED.GENADULT ---
HPI - General Adult General Chief complaint: Laceration/Wound Stated complaint: R thumb lac Time Seen by Provider: 02/02/25 18:19 History of Present Illness HPI narrative: Pt was using mandolin to cut cucumbers for a sour cream cucumber salad. Cut the pad of right thumb on accident. Is still bleeding a small amount. Rebandaged in triage. 79-year-old woman presenting to the emergency department following a laceration to her right thumb while using a mandolin to cut cucumbers. She describes a shaving event without flap available. Apparently was bleeding quite a bit more and she was having trouble getting the bleeding to stop. Sounds like was wrapped up initially by a neighbor who is healthcare provider. Subsequently recommended to present to the emergency department for further evaluation. Was wrapped with Coban in triage. Related Data Home Medications ?Medication ?Instructions ?Recorded ?Confirmed calcium 600 mg (as cap PO DAILY 12/07/21 05/22/24 carbonate)-vitamin D3 12.5 mcg (500 unit) capsule (Calcium with Vit D3) metoprolol succinate 25 mg 12.5 mg PO QDAY 05/22/24 05/22/24 tablet,extended release 24 hr Previous Rx's ?Medication ?Instructions ?Recorded levothyroxine 112 mcg tablet 112 mcg PO QDAY #90 tabs 06/26/24 Allergies Allergy/AdvReac Type Severity Reaction Status Date / Time wool Allergy Rash Verified 05/22/24 14:48 Duck eggs Allergy Mild Rash Uncoded 05/22/24 14:48 Ivory soap Allergy Mild Rash Uncoded 05/22/24 14:48 smoke Allergy Mild congestion Uncoded 05/22/24 14:48 Review of Systems Status of ROS: Reports: 6 or more systems reviewed and unremarkable except as noted in History and below [facility] Medical History SVT (supraventricular tachycardia) ?I47.10 - Supraventricular tachycardia, unspecified (ICD-10) Rosacea ?L71.9 - Rosacea, unspecified (ICD-10) Social History What is your current living situation?: I presently have a place to live Problems where you live: no known problems In the past 12 months, utilities in danger of being shut off: no In past 12 months, lack of transportation kept you from medical appts, meetings, work, or getting things needed for daily living: no In the past 12 mos, have been you worried that your food would run out before you had money to buy more?: never true In the past 12 mos, the food you bought just didn't last and you didn't have money to buy more?: never true Smoking Status: Never smoker Do you use any of these nicotine containing products: None Second hand tobacco smoke exposure: No How often do you have a drink containing alcohol: monthly or less How often do you have six or more drinks on one occasion: Never AUDIT-C Alcohol total score: 1 Non-prescribed substance use: denies use How often does anyone, including family, friends and others, physically hurt you: never How often does anyone, including family, friends and others, insult or talk down to you: never How often does anyone, including family, friends and others, threaten you with harm: never How often does anyone, including family, friends and others, scream or curse at you: never Exam Narrative: Exam Narrative: Pleasant. NAD. Breathing easily. Skin is warm and dry. The digit in question the right thumb, once dressing is removed, bleeds easily from with oval shaving injury maximal dimension 1 cm on the radial side distally adjacent to the nail. Const: Vital Signs, click to edit/add: Vital Signs - 24 hr 02/02/25 16:59 Temperature 96.8 F L Pulse Rate [Pulse Oximeter] 71 Respiratory Rate 16 Blood Pressure [Ri ght Upper Arm] 149/74 H Pulse Oximetry 98 Oxygen Delivery Me thod Room Air Documenting provider has reviewed patient's vital signs: yes Course Vital Signs Vital signs: Initial Vital Signs Temperature 96.8 F L 02/02/25 16:59 Temperature Source Temporal Artery Scan 02/02/25 16:59 Pulse Rate 71 02/02/25 16:59 Respiratory Rate 16 02/02/25 16:59 Blood Pressure 149/74 H 02/02/25 16:59 Blood Pressure Mean 99 02/02/25 16:59 Blood Pressure Position Sitting 02/02/25 16:59 Pulse Oximetry 98 02/02/25 16:59 Oxygen Delivery Method Room Air 02/02/25 16:59 Vital Signs Temperature 96.8 F L 02/02/25 16:59 Pulse Rate 71 02/02/25 16:59 Respiratory Rate 16 02/02/25 16:59 Blood Pressure 149/74 H 02/02/25 16:59 Pulse Oximetry 98 02/02/25 16:59 Oxygen Delivery Method Room Air 02/02/25 16:59 Temperature 96.8 F L 02/02/25 16:59 Pulse Rate 71 02/02/25 16:59 Respiratory Rate 16 02/02/25 16:59 Blood Pressure 149/74 H 02/02/25 16:59 Pulse Oximetry 98 02/02/25 16:59 Oxygen Delivery Method Room Air 02/02/25 16:59 Medical Decision Making MDM Narrative Medical decision making narrative: Will try to have a stop the bleeding. I do not think any further intervention is going to be beneficial. Current with tetanus I returned with surgi-foam and bandages. Exposed wound and cleansed with Shur-Clens type solution. Placed foam and wrapped with antibiotic ointment on the Band-Aid and further light pressure dressing with Jovani gauze. Placed only paper tape to secure so any bleeding can be more readily visible. On reassessment appears to have controlled bleeding at this point. See patient discharge plan for further discussion take this <del>surgeon</del> <del>phone</del> surgi-foam with you. If it bleeds through this current dressing go ahead and re-dress as we did here today with the surgifoam, Band-Aid and gauze wrap. if it bleeds through that, return. If it is not too uncomfortable, I would leave this current dressing on until tomorrow. change Band-Aid carefully, daily over this next week. Medical Records Medical records reviewed: Yes I reviewed the patient's medical records Discharge Plan Discharge Clinical Impression: Finger laceration Patient Disposition: Home, Self-Care Condition: Improved Additional Instructions: take this <del>surgeon</del> <del>phone</del> surgi-foam with you. If it bleeds through this current dressing go ahead and re-dress as we did here today with the surgifoam, Band-Aid and gauze wrap. if it bleeds through that, return. If it is not too uncomfortable, I would leave this current dressing on until tomorrow. change Band-Aid carefully, daily over this next week. Prescriptions: No Action calcium carbonate-vitamin D3 [Calcium 600 with Vitamin D3] 600 mg-12.5 mcg (500 unit) capsule PO DAILY metoprolol succinate 25 mg tablet extended release 24 hr 12.5 mg PO QDAY levothyroxine 112 mcg tablet 112 mcg PO QDAY Qty: 90 2RF Follow Up/Referrals: Shayan Scherer MD [Primary Care Provider, Internal Medicine] [facility]
--- OUTSIDE RECORDS SUMMARY | 2025-02-02 18:45 | XMS_ITS | CCD ---
Author Name Interface, [id number] lity Address [address] [place] [address] [address] [place] [address] Organization [facility] Address [address] [facility] [address] [place] [address] Care Team Providers Care Culinary Manager Name Role Phone Rosalie MALDONADO, Sigrid Floresi [...]
--- OUTSIDE RECORDS SUMMARY | 2025-02-02 18:45 | XMS_ITS | CCD ---
Author Name Interface, [id number] lity Address [address] [place] [address] [address] [place] [address] Organization [facility] Address [address] [facility] [address] [place] [address] Care Team Providers Care Marine Meteorologist Name Role Phone Rosalie MALDONADO, Sigrid Floresi [...]
== END 2025-02-02 19:26 | disposition home or self-care (01) ==
PROVIDERS: Emergency Provider Family Medicine; PCP Internal Medicine
DX: S61.011A Laceration without foreign body of right thumb without damage to nail, initial encounter (principal); W26.0XXA Contact with knife, initial encounter
CPT/HCPCS: 99282; 99284